=== PATIENT | male | born 1975 | race Caucasian/White ===

== ENCOUNTER 2017-04-16 20:04 | Inpatient (IN) | payer MEDICAID ==
[~2017-04-16] VITALS: Ht 182.9 cm; Wt 85.0 kg
[~2017-04-16 20:04] MED LIST: ALBU6.7H INH; CYCL-1 PO; HYDR-569 PO; IBUP-1986 PO; NO HOME MEDS
[2017-04-16] MEDS: nitroGLYCERIN 0.4mg SUBLingual tab SL PRN ×3 (20:33→20:48)
[2017-04-16 20:39] LABS: BASOPHILS # (AUTO) 0.1 X10'3 (0-0.2); BASOPHILS % (AUTO) 0.5 % (0-1); EOSINOPHILS # (AUTO) 0.3 X10'3 (0-0.9); EOSINOPHILS % (AUTO) 2.1 % (0-6); HEMATOCRIT 43.3 % (42.0-52.0); LYMPHOCYTES # (AUTO) 4.3 X10'3 (1.1-4.8); LYMPHOCYTES % (AUTO) 27.5 % (21-51); MEAN CORPUSCULAR HEMOGLOBIN 31.8 PG (27.0-31.0); MEAN CORPUSCULAR HGB CONC 34.6 % (33.0-36.5); MEAN CORPUSCULAR VOLUME 91.8 FL (78-98); MEAN PLATELET VOLUME 7.5 FL (7.4-10.4); MONOCYTES # (AUTO) 1.2 X10'3 (0-0.9); MONOCYTES % (AUTO) 7.7 % (2-12); NEUTROPHILS # (AUTO) 9.8 X10'3 (1.8-7.7); NEUTROPHILS % (AUTO) 62.2 % (42-75); PLATELET COUNT 412 X10'3 (140-440); RED BLOOD COUNT 4.72 X10'6 (4.70-6.10); WHITE BLOOD COUNT 15.8 X10'3 (4.5-11.0)
[2017-04-16 21:03] LABS: ALANINE AMINOTRANSFERASE 28 U/L (12-78); ALBUMIN 3.6 G/DL (3.4-5.0); ALBUMIN/GLOBULIN RATIO 1.1 (1.1-1.5); ALKALINE PHOSPHATASE 90 IU/L (46-116); ANION GAP 9 (8-16); ASPARTATE AMINO TRANSFERASE 18 U/L (10-37); BILIRUBIN,TOTAL 0.2 MG/DL (0.1-1.0); BLOOD UREA NITROGEN 15 MG/DL (7-18); BUN/CREATININE RATIO 18.1 (5.4-32.0); CALCIUM 9.1 MG/DL (8.5-10.1); CHLORIDE 107 MMOL/L (99-107); CREATININE 0.83 MG/DL (0.60-1.10); GLUCOSE 111 MG/DL (70-104); MAGNESIUM 2.1 MG/DL (1.5-2.4); POTASSIUM 4.1 MMOL/L (3.5-5.1); SODIUM 144 MMOL/L (135-145); TOTAL CARBON DIOXIDE 28.4 MMOL/L (24-32); TOTAL PROTEIN 6.8 G/DL (6.4-8.2); eGFR > 90 ML/MIN
[2017-04-16 21:09] LABS: TOTAL CELLS COUNTED 100
[2017-04-16 21:10] LABS: BURR CELLS 1+; PLATELET ESTIMATE NORMAL; TARGET CELLS FEW
[2017-04-16] MEDS: normal saline 1000ml 1,000 ML IV SCH (21:51)
[2017-04-16] MEDS ORDERED: nitroGLYCERIN 0.4mg SUBLingual tab SL PRN (21:55)
[2017-04-16] MEDS ORDERED: potassium Cl 40MEQ/NS 500ml 500 ML IV PRN ×2 (21:55)
[2017-04-16] MEDS ORDERED: magnesium hydroxide 30ml (MOM) UD suspension PO PRN (21:55)
[2017-04-16] MEDS ORDERED: regadenoson 0.4mg/5ml syringe IV ONE (21:55)
[2017-04-16] MEDS ORDERED: morphine 2 MG/ML inj. syringe IV PRN ×2 (21:55)
[2017-04-16] MEDS ORDERED: albuterol 2.5 MG/3 ML nebule NEB PRN (21:55)
[2017-04-16] MEDS ORDERED: ondansetron/PF 4mg/2ml inj IV PRN (21:55)
[2017-04-16] MEDS ORDERED: acetaminophen 325mg tablet PO PRN (21:55)
[2017-04-16] MEDS ORDERED: aminophylline 250mg/10ml inj. IV PRN (21:55)
[2017-04-16] MEDS ORDERED: ipratropium/albuterol 3ml nebule NEB PRN (21:55)
[2017-04-16] MEDS ORDERED: mag hydrox/Alum hydrox/simeth 30ml oral suspension PO PRN (21:55)
[2017-04-16] MEDS ORDERED: metoprolol tartrate 1mg/ml inj IV PRN (21:55)
[2017-04-16] MEDS ORDERED: potassium Cl 20 mEq SR tablet PO PRN ×2 (21:55)
[2017-04-16 22:30] LABS: D-DIMER < 0.19 MG/L FEU (0-0.50); INR 0.9 INR; PARTIAL THROMBOPLASTIN TIME 27 SECONDS (22-32); PROTHROMBIN TIME 9.8 SECONDS (9.0-12.0)
[2017-04-16 23:00] VITALS: BP 104/66
[2017-04-16] MEDS: enoxaparin 100mg/ml syringe SUBCUT SCH (23:37)
[2017-04-16 23:38] LABS: CHOLESTEROL 155 MG/DL (0-200); HDL CHOLESTEROL 22 MG/DL (35-60); LDL CHOLESTEROL 104 MG/DL (50-100); TRIGLYCERIDES 187 MG/DL (20-135)
[2017-04-17] VITALS (16 sets, daily range): BP systolic 99–137; BP diastolic 58–91
[2017-04-17 03:07] LABS: BASOPHILS # (AUTO) 0.1 X10'3 (0-0.2); BASOPHILS % (AUTO) 0.6 % (0-1); EOSINOPHILS # (AUTO) 0.5 X10'3 (0-0.9); EOSINOPHILS % (AUTO) 3.3 % (0-6); HEMATOCRIT 43.1 % (42.0-52.0); HEMOGLOBIN 14.9 g/dl (14.0-17.9); LYMPHOCYTES # (AUTO) 4.7 X10'3 (1.1-4.8); LYMPHOCYTES % (AUTO) 29.3 % (21-51); MEAN CORPUSCULAR HEMOGLOBIN 32.2 PG (27.0-31.0); MEAN CORPUSCULAR HGB CONC 34.6 % (33.0-36.5); MEAN PLATELET VOLUME 7.3 FL (7.4-10.4); MONOCYTES # (AUTO) 1.4 X10'3 (0-0.9); MONOCYTES % (AUTO) 8.6 % (2-12); NEUTROPHILS # (AUTO) 9.4 X10'3 (1.8-7.7); NEUTROPHILS % (AUTO) 58.2 % (42-75); PLATELET COUNT 416 X10'3 (140-440); RED BLOOD COUNT 4.63 X10'6 (4.70-6.10); RED CELL DISTRIBUTION WIDTH 13.3 % (11.5-14.5); WHITE BLOOD COUNT 16.1 X10'3 (4.5-11.0)
[2017-04-17 03:25] LABS: ALBUMIN 3.6 G/DL (3.4-5.0); ANION GAP 9 (8-16); BLOOD UREA NITROGEN 17 MG/DL (7-18); BUN/CREATININE RATIO 20.7 (5.4-32.0); CALCIUM 8.7 MG/DL (8.5-10.1); CHLORIDE 108 MMOL/L (99-107); CHOL/HDL RATIO 6.5 (0.00-4.99); CHOLESTEROL 157 MG/DL (0-200); CREATININE 0.82 MG/DL (0.60-1.10); GLUCOSE 94 MG/DL (70-104); HDL CHOLESTEROL 24 MG/DL (35-60); LDL CHOLESTEROL 109 MG/DL (50-100); POTASSIUM 4.1 MMOL/L (3.5-5.1); SODIUM 143 MMOL/L (135-145); TRIGLYCERIDES 98 MG/DL (20-135); eGFR > 90 ML/MIN
[2017-04-17] MEDS ORDERED: levoFLOXACIN-Levaquin 500mg/D5 100 ML IV ONE (07:45)
[2017-04-17] MEDS: atorvastatin 20mg tablet PO SCH (08:06)
[2017-04-17] MEDS: aspirin 81mg tablet.DR PO SCH (08:06)
[2017-04-17] MEDS: enoxaparin 100mg/ml syringe SUBCUT SCH ×2 (08:07→19:08)
[2017-04-17] MEDS: normal saline 1000ml 1,000 ML IV SCH (08:12)
[2017-04-17] MEDS: K and/or MAG REPLACEMENT MC SCH (08:12)
[2017-04-17] MEDS ORDERED: aminophylline inj. 0 ML IV ONE (10:02)
[2017-04-17] MEDS ORDERED: regadenoson 0.4mg/5ml syringe IV ONE (10:03)
[2017-04-18 03:00] VITALS: BP 105/63
[2017-04-18 05:12] LABS: BASOPHILS # (AUTO) 0.1 X10'3 (0-0.2); BASOPHILS % (AUTO) 0.7 % (0-1); EOSINOPHILS # (AUTO) 0.5 X10'3 (0-0.9); EOSINOPHILS % (AUTO) 3.5 % (0-6); HEMOGLOBIN 15.4 g/dl (14.0-17.9); LYMPHOCYTES # (AUTO) 3.6 X10'3 (1.1-4.8); LYMPHOCYTES % (AUTO) 26.7 % (21-51); MEAN CORPUSCULAR HGB CONC 34.9 % (33.0-36.5); MEAN CORPUSCULAR VOLUME 91.6 FL (78-98); MEAN PLATELET VOLUME 7.8 FL (7.4-10.4); MONOCYTES # (AUTO) 1.1 X10'3 (0-0.9); MONOCYTES % (AUTO) 8.3 % (2-12); NEUTROPHILS # (AUTO) 8.1 X10'3 (1.8-7.7); NEUTROPHILS % (AUTO) 60.8 % (42-75); PLATELET COUNT 412 X10'3 (140-440); RED BLOOD COUNT 4.81 X10'6 (4.70-6.10); RED CELL DISTRIBUTION WIDTH 13.1 % (11.5-14.5); WHITE BLOOD COUNT 13.4 X10'3 (4.5-11.0)
[2017-04-18 05:26] LABS: ALBUMIN 3.6 G/DL (3.4-5.0); ANION GAP 10 (8-16); BLOOD UREA NITROGEN 11 MG/DL (7-18); BUN/CREATININE RATIO 15.1 (5.4-32.0); CALCIUM 9.2 MG/DL (8.5-10.1); CHLORIDE 105 MMOL/L (99-107); CREATININE 0.73 MG/DL (0.60-1.10); GLUCOSE 87 MG/DL (70-104); POTASSIUM 4.1 MMOL/L (3.5-5.1); SODIUM 140 MMOL/L (135-145); TOTAL CARBON DIOXIDE 25.1 MMOL/L (24-32); eGFR > 90 ML/MIN
[2017-04-18 06:58] VITALS: BP 105/60
[2017-04-18] MEDS ORDERED: levoFLOXACIN-Levaquin 500mg/D5 100 ML IV SCH (08:00)
[2017-04-18] MEDS: K and/or MAG REPLACEMENT MC SCH (08:00)
[2017-04-18] MEDS: atorvastatin 20mg tablet PO SCH (08:30)
[2017-04-18] MEDS: aspirin 81mg tablet.DR PO SCH (08:30)
[2017-04-18] MEDS: enoxaparin 100mg/ml syringe SUBCUT SCH (08:31)
[2017-04-18 09:00] VITALS: BP_SYST 112; BP_SYST 114; BP_SYST 118; BP_DIAS 60; BP_DIAS 63; BP_DIAS 64
[2017-04-18 15:00] VITALS: BP 112/63
[2017-04-18] MEDS ORDERED: ATOR20TA66 PO (17:42)
[2017-04-19] MEDS ORDERED: lactobacillus rhamnosus 10,000 MMU CELLS/CAPSULE PO SCH (07:30)
== END 2017-04-18 19:55 | disposition home or self-care (01) | DRG 204 ==
LOC: ER 20:05 → ED HOLD 21:51 → PCU 3S 22:35
PROVIDERS: ADMIT Internal Medicine; ATTEND Family Medicine
PROC: 4A02XM4 Measurement of Cardiac Total Activity, External Approach (ICD-10-PCS; principal; 2017-04-17)
PROC: 3E033HZ Introduction of Radioactive Substance into Peripheral Vein, Percutaneous Approach (ICD-10-PCS; 2017-04-17)
DX: R55 Syncope and collapse (principal); I24.9 Acute ischemic heart disease, unspecified; Q89.01 Asplenia (congenital); R07.9 Chest pain, unspecified; R00.1 Bradycardia, unspecified; D72.829 Elevated white blood cell count, unspecified; F17.210 Nicotine dependence, cigarettes, uncomplicated; Z90.81 Acquired absence of spleen; Z88.0 Allergy status to penicillin; Z88.1 Allergy status to other antibiotic agents
CPT/HCPCS: 36415; 70544; 70551; 71045; 78452; 80048; 80053; 80061; 83605; 83735; 83880; 84484; 85025; 85379; 85610; 85651; 85730; 87040; 87070; 93005; 93017; 93306; 93880; 94760; 99285; A9500; J0280; J1650; J1956; J7030

== ENCOUNTER 2021-06-05 20:55 | Emergency (ER) | payer OTHER ==
[~2021-06-05] VITALS: Ht 182.9 cm; Wt 86.2 kg
[~2021-06-05 20:55] MED LIST changes: -ALBU6.7H INH; -CYCL-1 PO; -HYDR-569 PO; -IBUP-1986 PO; +LIDOcaine 1% W/epiNEPHrine 1:100,000 20ml vial ONE; -NO HOME MEDS
[2021-06-05 23:14] VITALS: BP 120/75
[2021-06-05 23:42] LABS: URINE AMPHETAMINE SCREEN NEGATIVE (Neg); URINE BARBITUATE SCREEN NEGATIVE (Neg); URINE BENZODIAZEPINES SCREEN NEGATIVE (Neg); URINE CANNABINOID SCREEN NEGATIVE (Neg); URINE COCAINE SCREEN NEGATIVE (Neg); URINE METHADONE SCREEN NEGATIVE (Neg); URINE OPIATE SCREEN NEGATIVE (Neg); URINE PHENCYCLIDINE SCREEN NEGATIVE (Neg)
== END 2021-06-05 23:24 | disposition home or self-care (01) ==
LOC: ER 20:56
DX: S01.81XA Laceration without foreign body of other part of head, initial encounter (principal); S01.511A Laceration without foreign body of lip, initial encounter; Z88.0 Allergy status to penicillin; Z88.1 Allergy status to other antibiotic agents; Z98.890 Other specified postprocedural states; W22.8XXA Striking against or struck by other objects, initial encounter; Y93.89 Activity, other specified; Y92.89 Other specified places as the place of occurrence of the external cause; Y99.0 Civilian activity done for income or pay
CPT/HCPCS: 12011; 70486; 80305; 99284; J3490

== ENCOUNTER 2023-09-22 19:09 | Emergency (ER) | payer MEDICAID ==
[~2023-09-22] VITALS: Ht 180.3 cm; Wt 90.2 kg
[2023-09-22] MEDS ORDERED: LIDO700A32 TOP (19:55)
[2023-09-22] MEDS ORDERED: CYCL-1 PO (19:55)
[2023-09-22] MEDS: HYDROcodone/acetaminophen 5mg/325mg tablet PO ONE (20:36)
[2023-09-22] MEDS: ketorolac trometh. 30mg/ml inj. IM ONE (20:37)
[2023-09-22] MEDS: dexamethasone sod phosphate 10mg/ml inj IM STA (20:37)
[2023-09-22 20:53] VITALS: BP 133/88; PULSE 87; RESP 18; TEMP 98; O2SAT 94
== END 2023-09-22 20:55 | disposition home or self-care (01) ==
LOC: ER 19:10
DX: M25.511 Pain in right shoulder (principal); Z88.0 Allergy status to penicillin; Z88.1 Allergy status to other antibiotic agents; W19.XXXA Unspecified fall, initial encounter; Y93.89 Activity, other specified; Y92.89 Other specified places as the place of occurrence of the external cause; Y99.8 Other external cause status
CPT/HCPCS: 73030; 96372; 99284; J1100; J1885; A4565